=== PATIENT | male | born 1935 | race Two or more races ===

== ENCOUNTER 2019-06-11 15:35 | Inpatient (IN) | payer OTHER ==
[~2019-06-11] VITALS: Ht 160 cm; Wt 65.3 kg
[2019-06-25] MEDS ORDERED: COZAAR50 MG PO (14:52)
[2019-06-25] MEDS ORDERED: SYNTHROID100 MCG PO (14:52)
[2019-06-25] MEDS ORDERED: XARELTO20 MG PO (14:52)
[2019-06-25] MEDS ORDERED: FOLIC ACID1 MG PO (14:53)
[2019-06-25] MEDS ORDERED: METROTEXATE IM (14:54)
[2019-07-10] MEDS ORDERED: METHOTREXA25 MG/1 M6 (10:22)
[2019-07-10] MEDS ORDERED: GLIPIZIDE XL10 MG PO (10:23)
[2019-07-10] MEDS ORDERED: LEVO-T25 MCG PO (10:23)
[2019-07-10] MEDS ORDERED: GABAPENTIN400 MG PO (10:24)
[2019-07-15] MEDS ORDERED: HYOSCYAMINE0.125 M1 SL (13:54)
[2019-07-15] MEDS ORDERED: INTESTINEX680 M1 PO (13:56)
[2019-07-15] MEDS ORDERED: ULTRACET PO (13:56)
== END 2019-07-15 16:38 | disposition home or self-care (01) | DRG 330 ==
LOC: SURG 06-25 10:00 → SURH 07-10 10:08 → O/R 07-10 10:08 → SURG 07-10 13:30 → SURH 07-10 18:51
PROVIDERS: ADMIT Surgery
PROC: 0WUF4JZ Supplement Abdominal Wall with Synthetic Substitute, Percutaneous Endoscopic Approach (ICD-10-PCS; 2019-07-10)
PROC: 0DNW4ZZ Release Peritoneum, Percutaneous Endoscopic Approach (ICD-10-PCS; 2019-07-10)
PROC: 4A12X4Z Monitoring of Cardiac Electrical Activity, External Approach (ICD-10-PCS; 2019-07-10)
PROC: 4A033R1 Measurement of Arterial Saturation, Peripheral, Percutaneous Approach (ICD-10-PCS; 2019-07-10)
PROC: 0DQN4ZZ Repair Sigmoid Colon, Percutaneous Endoscopic Approach (ICD-10-PCS; principal; 2019-07-10 13:30)
DX: K57.32 Diverticulitis of large intestine without perforation or abscess without bleeding (principal); K43.3 Parastomal hernia with obstruction, without gangrene; K43.0 Incisional hernia with obstruction, without gangrene; I13.0 Hypertensive heart and chronic kidney disease with heart failure and stage 1 through stage 4 chronic kidney disease, or unspecified chronic kidney disease; I11.9 Hypertensive heart disease without heart failure; I48.0 Paroxysmal atrial fibrillation; E03.8 Other specified hypothyroidism; E11.22 Type 2 diabetes mellitus with diabetic chronic kidney disease; N18.3 Chronic kidney disease, stage 3 (moderate); K66.0 Peritoneal adhesions (postprocedural) (postinfection); Z43.3 Encounter for attention to colostomy; Z79.4 Long term (current) use of insulin; Z79.01 Long term (current) use of anticoagulants

== ENCOUNTER 2020-08-27 06:04 | Day surgery (SDC) | payer OTHER ==
[~2020-08-27 06:04] MED LIST: COZAAR50 MG PO; FOLIC ACID1 MG PO; GABAPENTIN400 MG PO; GLIPIZIDE XL10 MG PO; HYOSCYAMINE0.125 M1 SL; INTESTINEX680 M1 PO; LEVO-T25 MCG PO; METHOTREXA25 MG/1 M6; METROTEXATE IM; SYNTHROID100 MCG PO; ULTRACET PO; XARELTO20 MG PO
== END 2020-08-27 10:40 | disposition home or self-care (01) ==
LOC: AMB-ENDOS 06:04
PROVIDERS: ATTEND Surgery
DX: K62.89 Other specified diseases of anus and rectum (principal)